=== PATIENT | female | born 1975 | race Two or more races ===

== ENCOUNTER 2017-05-05 17:58 | Emergency (ER) | payer MEDICAID ==
[~2017-05-05] VITALS: Ht 157.5 cm; Wt 67.0 kg
[~2017-05-05 17:58] MED LIST: PREN1TAB49
[2017-05-05 18:01] VITALS: Ht 157.5 cm; Wt 67.0 kg
[2017-05-05] MEDS ORDERED: SOD CHLORIDE 0.9% 1,000 ML IV STA (19:06)
[2017-05-05] MEDS ORDERED: KETOROLAC 30 MG INJ IV STA (19:06)
[2017-05-05] MEDS ORDERED: ONDANSETRON 4 MG INJ IV STA (19:06)
[2017-05-05] MEDS ORDERED: morphine 4 MG/ML VIAL IV STA (19:06)
[2017-05-05] MEDS ORDERED: PANTOPRAZOLE 40 MG INJ IV ONE (19:30)
[2017-05-05 19:39] LABS: BASOPHILS % 0.4 % (0.0-2.0); EOSINOPHILS # 0.1 10^3/ul (0.0-0.5); EOSINOPHILS % 1.2 % (0.0-7.0); HEMATOCRIT 37.4 % (37.0-47.0); HEMOGLOBIN 12.6 g/dl (12.0-16.0); LYMPHOCYTES # 2.8 10^3/ul (0.8-2.9); LYMPHOCYTES % 35.8 % (15.0-51.0); MEAN CORPUSCULAR HEMOGLOBIN 31.3 pg (29.0-33.0); MEAN CORPUSCULAR HGB CONC 33.7 g/dl (32.0-37.0); MEAN CORPUSCULAR VOLUME 92.8 fl (82.0-101.0); MEAN PLATELET VOLUME 10.5 fl (7.4-10.4); MONOCYTE # 0.6 10^3/ul (0.3-0.9); MONOCYTES % 7.2 % (0.0-11.0); NEUTROPHILS % 55.1 % (39.0-77.0); PLATELET COUNT 214 10^3/UL (140-415); RED BLOOD COUNT 4.03 10^6/ul (4.20-5.40); RED CELL DISTRIBUTION WIDTH 12.6 % (11.5-14.5); WHITE BLOOD COUNT 7.8 10^3/ul (4.8-10.8)
[2017-05-05 19:46] LABS: ADD UMIC YES; UR ASCORBIC ACID NEGATIVE (NEGATIVE); UR BACTERIA FEW /HPF (NONE SEEN); UR BILIRUBIN (Dip) NEGATIVE (NEGATIVE); UR BLOOD (Dip) NEGATIVE (NEGATIVE); UR CLARITY SLIGHTLY CLOUDY (CLEAR); UR COLOR YELLOW (YELLOW); UR GLUCOSE (Dip) NEGATIVE (NEGATIVE); UR KETONES (Dip) NEGATIVE (NEGATIVE); UR LEUKOCYTE ESTERASE (Dip) 2+ Leu/ul (NEGATIVE); UR NITRITE (Dip) NEGATIVE (NEGATIVE); UR RBC 1 /HPF (0-5); UR SPECIFIC GRAVITY (Dip) 1.012 (1.003-1.030); UR SQUAMOUS EPITHELIAL CELL FEW /HPF (FEW); UR TOTAL PROTEIN (Dip) NEGATIVE (NEGATIVE); UR UROBILINOGEN (Dip) NEGATIVE (NEGATIVE)
[2017-05-05 20:00] LABS: ALBUMIN 4.3 g/dl (3.3-4.9); ALBUMIN/GLOBULIN RATIO 1.34; BILIRUBIN,INDIRECT 0.2 mg/dl (0-1.1); BILIRUBIN,TOTAL 0.2 mg/dl (0.2-1.3); CALCIUM 9.2 mg/dl (8.4-10.2); CREATININE 1.21 mg/dl (0.44-1.00); POTASSIUM 3.8 mmol/L (3.5-5.1); TOTAL PROTEIN 7.5 g/dl (6.1-8.1)
--- NOTE | 2017-05-05 21:21 | RADRPT ---
PROCEDURE: Right upper quadrant abdominal ultrasound. CLINICAL INDICATION: Abdominal pain TECHNIQUE: Paredes scale and color doppler ultrasound images of the right upper quadrant of the abdom en. COMPARISON: None FINDINGS: Pancreas: Not visualized by the mangle operator garments. Liver: Morphology:Normal in size. Contour:Normal, no evidence of nodularity. Echogenicity: Normal. Focal lesions:None. Main portal vein: Patent with hepatopetal flow. Biliary System: Gallbladder wall: Normal thickness. Gallstones: None. Intrahepatic bile ducts: Normal caliber. Common bile duct diameter (mm): 2.1 Kidneys: Right length (cm) : 9.0 Right cortical thickness: Not well visualized, suspected mild thinning. Echogenicity: Normal. Hydronephrosis: None. Renal calculi: None. Focal lesions: None. Free fluid/ascites: None. Abdominal aorta: Not visualized by the mangle operator garments. Other findings: None. IMPRESSION: Normal gallbladder without gallstones. RPTAT: AADD .Jeronimo Pierson MD, MD Date Time Electronically viewed and signed by .Jeronimo Pierson MD, on 05/05/2017 21:21 .B/
--- NOTE | 2017-05-05 21:45 | ERD ---
ER Documentation Chief Complaint Date/Time DATE: 05/05/17 TIME: 21:33 Chief Complaint pt bib family with c/o abd pain and vomiting since yesterday HPI This 41-year-old female presents to emergency department with right upper quadrant pain, epigastric pain, vomiting, chest burning with a bitter taste in her mouth. Patient denies history of GERD or gastritis. Patient denies any past medical history involving her gallbladder. Patient denies any diarrhea, or dysuria. Denies chest pain, shortness of breath, palpitations, or dizziness, ROS All systems reviewed and are negative except as per history of present illness. Medications Home Meds Active Scripts Nitrofurantoin Monohyd Macrocr* (Macrobid*) 100 Mg Capsr, 100 MG PO HS for 7 Days, CAP Prov:BO,BRIDGET 05/05/17 Ranitidine Hcl* (Zantac*) 150 Mg Tablet, 150 MG PO BID Y for EPIGASTRIC PAIN, # 30 TAB Prov:BO,BRIDGET 05/05/17 Reported Medications Vits W-Ca,Fe,Fa(<1MG) () 1 Tab Tablet 09/01/09 Allergies Allergies: Coded Allergies: No Known Drug Allergy (Verified Allergy, Unknown, 09/01/09) PMhx/Soc History of Surgery: No Hx Neurological Disorder: No Hx Respiratory Disorders: No Hx Cardiac Disorders: No Hx Psychiatric Problems: No Hx Miscellaneous Medical Probl: No Hx Alcohol Use: No Hx Substance Use: No Hx Tobacco Use: No Smoking Status: Never smoker Physical Exam Vitals Vital Signs Date Time Temp Pulse Resp B/P Pulse Ox O2 Delivery O2 Flow Rate FiO2 05/05/17 18:01 97.9 88 18 104/72 98 Physical Exam Const: This well-appearing well-nourished well-hydrated female obvious discomfort no acute distress Head: Eyes: Normal ConjunctivaPERRLA, EOMI, no jaundice ENT: Normal External Ears, Nose and Mouth. Neck: Resp: Clear to auscultation bilaterallyNo rales wheezes or rhonchi Cardio: Regular rate and rhythm, no murmurs Abd: Soft, Right upper quadrant tenderness, epigastric tenderness. No McBurney's point tenderness, no pelvic tenderness, no CVA tenderness Skin: No petechiae or rashes Back: No midline or flank tenderness, No CVA tenderness Ext: Neur: Awake and alert Psych: Normal Mood and Affect Result Diagram: 05/05/17193005/05/171930 Results 24 hrs Laboratory Tests Test 05/05/17 19:20 05/05/17 19:31 Urine Color YELLOW Urine Clarity SLIGHTLY CLOUDY Urine pH 7.0 Urine Specific [place] 1.012 Urine Ketones NEGATIVEmg/dL Urine Nitrite NEGATIVEmg/dL Urine Bilirubin NEGATIVEmg/dL Urine Urobilinogen NEGATIVEmg/dL Urine Leukocyte Esterase 2+Raymond/ul Urine Microscopic RBC 1/HPF Urine Microscopic WBC 4/HPF Urine Squamous Epithelial Cells FEW/HPF Urine Bacteria FEW/HPF Urine Hemoglobin NEGATIVEmg/dL Urine Glucose NEGATIVEmg/dL Urine Total Protein NEGATIVEmg/dl White Blood Count 7.810^3/ul Red Blood Count 4.0310^6/ul Hemoglobin 12.6g/dl Hematocrit 37.4% Mean Corpuscular Volume 92.8fl Mean Corpuscular Hemoglobin 31.3pg Mean Corpuscular Hemoglobin Concent 33.7g/dl Red Cell Distribution Width 12.6% Platelet Count 53037^3/UL Mean Platelet Volume 10.5fl Neutrophils % 55.1% Lymphocytes % 35.8% Monocytes % 7.2% Eosinophils % 1.2% Basophils % 0.4% Nucleated Red Blood Cells % 0.0/100WBC Neutrophils # (Manual) 4.310^3/ul Lymphocytes # 2.810^3/ul Monocytes # 0.610^3/ul Eosinophils # 0.110^3/ul Basophils # 0.010^3/ul Nucleated Red Blood Cells # 0.010^3/ul Sodium Level 141mmol/L Potassium Level 3.8mmol/L Chloride Level 104mmol/L Carbon Dioxide Level 29mmol/L Anion Gap 12 Blood Urea Nitrogen 13mg/dl Creatinine 1.21mg/dl Glucose Level 89mg/dl Calcium Level 9.2mg/dl Total Bilirubin 0.2mg/dl Direct Bilirubin 0.00mg/dl Indirect Bilirubin 0.2mg/dl Aspartate Amino Transf (AST/SGOT) 25IU/L Alanine Aminotransferase (ALT/SGPT) 37IU/L Alkaline Phosphatase 78IU/L Total Protein 7.5g/dl Albumin 4.3g/dl Globulin 3.20g/dl Albumin/Globulin Ratio 1.34 Lipase 152U/L Current Medications Medications (Trade) Dose Ordered Sig/Syed Route PRN Reason Start Time Stop Time Status Last Admin Dose Admin Sodium Chloride (NS) 1,000 ml @ 1,000 mls/hr Q1H STAT IV 05/05/17 19:06 05/05/17 20:05 DC 05/05/17 19:31 Morphine Sulfate (morphine) 4 mg ONCE STAT IV 05/05/17 19:06 05/05/17 19:09 DC 05/05/17 19:29 Ondansetron HCl (Zofran Inj) 4 mg ONCE STAT IV 05/05/17 19:06 05/05/17 19:09 DC 05/05/17 19:30 Ketorolac Tromethamine (Toradol) 30 mg ONCE STAT IV 05/05/17 19:06 05/05/17 19:09 DC 05/05/17 19:30 Pantoprazole (Protonix Iv) 40 mg ONCE ONCE IV 05/05/17 19:30 05/05/17 19:31 DC 05/05/17 19:30 Interpretation text CBC shows no evidence of hemorrhage or infection Chemistry shows no evidence of significant electrolyte abnormalities or renal insufficiency Liver function tests shows no evidence of acute biliary or hepatic dysfunction Lipase shows no evidence of acute pancreatitis Urinalysis positive for evidence of infection with leukocytosis, Procedures/MDM PROCEDURE: Right upper quadrant abdominal ultrasound. CLINICAL INDICATION: Abdominal pain TECHNIQUE: Paredes scale and color doppler ultrasound images of the right upper quadrant of the abdomen. COMPARISON: None FINDINGS: Pancreas: Not visualized by the crop or grain farmworker. Liver: Morphology:Normal in size. Contour:Normal, no evidence of nodularity. Echogenicity: Normal. Focal lesions:None. Main portal vein: Patent with hepatopetal flow. Biliary System: Gallbladder wall: Normal thickness. Gallstones: None. Intrahepatic bile ducts: Normal caliber. Common bile duct diameter (mm): 2.1 Kidneys: Right length (cm) : 9.0 Right cortical thickness: Not well visualized, suspected mild thinning. Echogenicity: Normal. Hydronephrosis: None. Renal calculi: None. Focal lesions: None. Free fluid/ascites: None. Abdominal aorta: Not visualized by the crop or grain farmworker. Other findings: None. IMPRESSION: Normal gallbladder without gallstones. Electronically viewed and signed by .Jeronimo Pierson MD, MD on 05/05/2017 21:21 This pleasant 41-year-old female presents to emergency department for abdominal pain. Patient reports sudden onset of pain yesterday. Denies any known causative factors pain is located in the epigastrium with a burning sensation radiating up chest, bitter taste in mouth, and right upper quadrant pain.. Physical exam and history support a differential diagnosis of but not limited to GERD, cholecystitis, cholelithiasis, or pancreatitis Emergency room course includes diagnostic laboratory testing with no evidence of gross infection, anemia, or hemorrhage. No electrolyte dysfunction, or renal insufficiency, no pancreatitis, or hepatitis. Urinary tract infection noted on urinalysis. Right upper quadrant abdominal ultrasound with radiologist's interpretation of normal gallbladder without gallstones. Patient receives a liter of normal saline, 15 mg IV Toradol, 4 mg IV morphine, and 40 mg IV Protonix patient reassessed after 60 minutes with improvement of symptoms plan to discharge patient home with Zantac 150 twice daily,Macrobid 100 mg twice daily 7 days and instructions to follow-up with primary care physician for full evaluation of abdominal pain. Patient is stable with no new complaints during ER course, clinically there is no current evidence to suggest meningitis, sepsis, acute abdomen, acute coronary syndrome, obstructing biliary stent or any other emergent condition appearing to require further evaluation or hospitalization. I feel the patient is stable for discharge at this time. I have discussed results, examination findings, the treatment plan with the patient and family present prior to discharge. Indications for emergent reevaluation, side effects of medication were also discussed. All questions were answered. Patient verbalizes understanding and agrees with plan of care. Departure Diagnosis: Primary Impression: Gastritis Gastritis type: unspecified gastritis Chronicity: unspecified Gastritis bleeding: without bleeding Qualified Code: K29.70 - Gastritis without bleeding, unspecified chronicity, unspecified gastritis type Additional Impression: Abdominal pain Abdominal location: epigastric Qualified Code: R10.13 - Epigastric pain Condition: Good Patient Instructions: [facility] (Adult) [facility] Additional Instructions: Thank you for for coming to [facility] for your care today. Please ask your nurse or provider if you have questions about your care today and do not leave until all your questions have been answered. Please use any medications given as directed and follow-up with your doctor (or the doctor you were referred to) in the next 2-3 days. If you do not have a primary care doctor you may follow up at the [facility] [place] (listed below). You may also use motrin and tylenol as needed for fever and/or pain unless instructed otherwise by your provider or nurse. Indications for more urgent follow-up have been discussed, but you may return to the Emergency Department at ANY time for any worrisome or worsening symptoms. If you have abdominal pain, please know that no test or exam you received is perfect and you should follow up within 8 hours for continued pain. If you had any imaging studies today, such as an X-Ray or CT Scan, these studies will be reviewed later by a radiologist. You will be called if there are important findings that were not identified today, so make sure the contact information you provided at registration is correct. If you received any narcotic pain control medicine today, such as Vicodin, Morphine or Dilaudid, your coordination and judgment may be affected for a number of hours. Please do not drive or operate heavy machinery, and you may want someone to assist you at home. If you were given a prescription for narcotic medication, be aware that it is very addictive- use sparingly and only if necessary. BRIDGET SORIANO May 05, 2017 21:44
[2017-05-05] MEDS ORDERED: NITR-58 PO ×2 (21:53)
[2017-05-05] MEDS ORDERED: RANI150T9 PO (21:53)
[2017-05-05 22:20] VITALS: BP 106/57; PULSE 61; RESP 16
== END 2017-05-05 22:21 | disposition home or self-care (01) ==
LOC: FTE 17:58
DX: K29.70 Gastritis, unspecified, without bleeding (principal); R10.13 Epigastric pain; R11.10 Vomiting, unspecified
CPT/HCPCS: 36415; 76705; 80053; 81001; 83690; 85025; 96374; 96375; C9113; J1885; J2270; J2405; J7030; Z7502